=== PATIENT | female | born 1970 | race Caucasian/White ===

== ENCOUNTER 2021-03-14 09:29 | Emergency (ER) | payer MEDICAID ==
[~2021-03-14] VITALS: Ht 157.5 cm; Wt 83.0 kg
[2021-03-14] MEDS ORDERED: IBUPROFEN 600MG TABLET PO ONE (10:00)
[2021-03-14] MEDS ORDERED: MORPHINE SULFATE 4 MG/ML CPJ (NOT FOR IM USE) IV ONE (11:30)
[2021-03-14] MEDS ORDERED: LIDOCAINE HCL/PF 1% 2ML VIAL INFIL ONE (11:30)
[2021-03-14] MEDS ORDERED: IBUP-2029 MT (13:26)
[2021-03-14] MEDS ORDERED: HYDR-4346 MT (13:26)
[2021-03-14 13:34] VITALS: BP 153/87
[2021-03-14] MEDS ORDERED: LIDOCAINE HCL 1% 20ML VIAL (Pyxis) INJ INFIL NR (16:06)
== END 2021-03-14 13:36 | disposition home or self-care (01) ==
LOC: ER 09:29
DX: S52.592A Other fractures of lower end of left radius, initial encounter for closed fracture (principal); S52.612A Displaced fracture of left ulna styloid process, initial encounter for closed fracture; I10 Essential (primary) hypertension; W18.39XA Other fall on same level, initial encounter; Y93.89 Activity, other specified; Y92.89 Other specified places as the place of occurrence of the external cause; Y99.8 Other external cause status
CPT/HCPCS: 25605; 73110; 96374; 99284; J2270; J3490

== ENCOUNTER 2022-10-22 08:59 | Emergency (ER) | payer MEDICAID ==
[~2022-10-22] VITALS: Ht 157.5 cm; Wt 82.0 kg
[~2022-10-22 08:59] MED LIST: HYDR-4346 MT; IBUP-2029 MT
[2022-10-22] MEDS ORDERED: TETANUS, DIPHTHERIA, PERTUSSIS VAC/PF 0.5ML (>10YR OLD) IM ONE (10:30)
[2022-10-22] MEDS ORDERED: LIDOCAINE HCL/PF 1% 10 MG/ML 5ML VIAL INFIL ONE (10:30)
[2022-10-22] MEDS ORDERED: BACITRACIN ZINC OINT UDPKT TOP ONE (10:30)
[2022-10-22] MEDS ORDERED: BO1 TP (12:24)
[2022-10-22 12:40] VITALS: BP 169/99
== END 2022-10-22 12:42 | disposition home or self-care (01) ==
LOC: ER 09:49
DX: S61.012A Laceration without foreign body of left thumb without damage to nail, initial encounter (principal); I10 Essential (primary) hypertension; E11.9 Type 2 diabetes mellitus without complications; W26.0XXA Contact with knife, initial encounter; Y93.G3 Activity, cooking and baking; Y92.010 Kitchen of single-family (private) house as the place of occurrence of the external cause
CPT/HCPCS: 12002; 82962; 99282; J3490; Z7610

== ENCOUNTER 2022-10-25 09:22 | Emergency (ER) | payer MEDICAID ==
[~2022-10-25] VITALS: Ht 157.5 cm; Wt 82.0 kg
[~2022-10-25 09:22] MED LIST changes: +BO1 TP
[2022-10-25 09:34] VITALS: BP 157/74
== END 2022-10-25 12:14 | disposition home or self-care (01) ==
LOC: ER 09:22
DX: S61.012D Laceration without foreign body of left thumb without damage to nail, subsequent encounter (principal); I10 Essential (primary) hypertension; E11.9 Type 2 diabetes mellitus without complications; Z48.00 Encounter for change or removal of nonsurgical wound dressing; X58.XXXD Exposure to other specified factors, subsequent encounter
CPT/HCPCS: 99281

== ENCOUNTER 2022-11-02 07:24 | Emergency (ER) | payer MEDICAID ==
[~2022-11-02] VITALS: Ht 157.5 cm; Wt 82.0 kg
[2022-11-02 07:43] VITALS: BP 164/85
== END 2022-11-02 09:09 | disposition home or self-care (01) ==
LOC: ER 07:24
DX: Z48.02 Encounter for removal of sutures (principal)
CPT/HCPCS: 99281